=== PATIENT | female | born 1985 | race African-American/Black ===

== ENCOUNTER 2016-07-07 19:12 | Emergency (ER) | payer OTHER ==
[2016-07-07 19:18] VITALS: BP 132/84; PULSE 79; TEMP 98.4; BMI 32.5
--- NOTE | 2016-07-07 19:25 | PDOC ---
History of Present Illness - General History Source: Patient, Old Records Exam Limitations: No Limitations - History of Present Illness Initial Comments: 07/07/16 20:52 The patient is a 30 year old female who is currently 5 weeks , A1 with an ectopic, with a significant past medical history of asthma and ectopic , who presents to the emergency department with abdominal pain, headache and dizziness. She describes her pain as localized in the left lower side and suprapubic region. She denies any vaginal bleeding. She notes that she found out she was last week. The patient was last in the ED on 2016 for abdominal pain and was discharged after improvement of symptoms. The patient denies chest pain and shortness of breath. Denies fever, chills, nausea, vomit, diarrhea and constipation. Denies dysuria, frequency, urgency and hematuria. LMP: 06/01/2016 Allergies: None Past surgical history: ECTOPIC, LEFT FALLOPIAN TUBE REMOVED Social history: No alcohol, tobacco or drug use reported <Tom Rodriguez - Last Filed: 07/07/16 22:02> <Nicole Castle - Last Filed: 07/08/16 02:16> - General Chief Complaint: Pain Stated Complaint: HEADACHE/5 WKS Time Seen by Provider: 07/07/16 19:23 Past History <Tom Rodriguez - Last Filed: 07/07/16 22:02> - Past Medical History Asthma: Yes - Surgical History Abdominal Surgery: No (ECTOPIC, LEFT FILOPIAN TUBE REMOVED) - Reproductive History (#): 3 Para: 2 Spontaneous : 1 - Psycho/Social/Smoking Cessation Hx Anxiety: No Suicidal Ideation: No Smoking History: Never smoked Have you smoked in the past 12 months: No Information on smoking cessation initiated: No Hx Alcohol Use: No Drug/Substance Use Hx: No Substance Use Type: None <Nicole Castle - Last Filed: 07/08/16 02:16> - Past Medical History Allergies/Adverse Reactions: Allergies Allergy/AdvReac Type Severity Reaction Status Date / Time No Known Allergies Allergy Verified 07/07/16 19:15 Home Medications: Ambulatory Orders NK [No Known Home Medication] 07/07/16 Review of Systems - Review of Systems Able to Perform ROS?: Yes Comments:: 07/07/16 20:52 GENERAL/CONSTITUTIONAL: No fever or chills. No weakness. HEAD, EYES, EARS, NOSE AND THROAT: No change in vision. No ear pain or discharge. No sore throat. CARDIOVASCULAR: No chest pain or shortness of breath RESPIRATORY: No cough, wheezing, or hemoptysis. GASTROINTESTINAL: (+)Abdominal pain. No nausea, vomiting, diarrhea or constipation. GENITOURINARY: No dysuria, frequency, or change in urination. MUSCULOSKELETAL: No joint or muscle swelling or pain. No neck or back pain. SKIN: No rash NEUROLOGIC: (+) Headache and dizziness. No loss of consciousness, or change in strength/sensation. ENDOCRINE: No increased thirst. No abnormal weight change HEMATOLOGIC/LYMPHATIC: No anemia, easy bleeding, or history of blood clots. ALLERGIC/IMMUNOLOGIC: No hives or skin allergy. <Tom Rodriguez - Last Filed: 07/07/16 22:02> *Physical Exam - Vital Signs Last Vital Signs Temp Pulse Resp BP Pulse Ox 98.4 F 79 18 132/84 99 07/07/16 19:15 07/07/16 19:15 07/07/16 19:15 07/07/16 19:15 07/07/16 19:15 - Physical Exam Comments: 07/07/16 20:52 GENERAL: Awake, alert, and fully oriented, in no acute distress HEAD: No signs of trauma, normocephalic, atraumatic EYES: PERRLA, EOMI, sclera anicteric, conjunctiva clear ENT: Auricles normal inspection, hearing grossly normal, nares patent, oropharynx clear without exudates. Moist mucosa NECK: Normal ROM, supple, no lymphadenopathy, JVD, or masses LUNGS: No distress, speaks full sentences, clear to auscultation bilaterally HEART: Regular rate and rhythm, normal S1 and S2, no murmurs, rubs or gallops, peripheral pulses normal and equal bilaterally. ABDOMEN: Soft, nontender, normoactive bowel sounds. No guarding, no rebound. No masses EXTREMITIES: Normal inspection, Normal range of motion, no edema. No clubbing or cyanosis. NEUROLOGICAL: Cranial nerves II through XII grossly intact. Normal speech, normal gait, no focal sensorimotor deficits SKIN: Warm, Dry, normal turgor, no rashes or lesions noted. <Tom Rodriguez - Last Filed: 07/07/16 22:02> - Vital Signs Last Vital Signs Temp Pulse Resp BP Pulse Ox 98.4 F 79 18 132/84 99 07/07/16 19:15 07/07/16 19:15 07/07/16 19:15 07/07/16 19:15 07/07/16 19:15 <Nicole Castle - Last Filed: 07/08/16 02:16> ED Treatment Course - Medications Given in the ED: ED Medications Discontinued Medications Generic Name Dose Route Start Last Admin Trade Name Chanda PRN Reason Stop Dose Admin Acetaminophen 975 mg 07/07/16 19:48 07/07/16 19:59 Tylenol - PO 07/07/16 19:49 975 mg ONCE ONE Administration <Tom Rodriguez - Last Filed: 07/07/16 22:02> Medical Decision Making - Medical Decision Making 07/08/16 02:07 30-year-old female presents stating that she is and was concerned about left pelvic pain [facility] is 252 Pelvic Ultrasound only showed thickened endometrium Plan patient will need to have repeat beta hCG and pelvic ultrasound in 48 hours Impression early <Nicole Castle - Last Filed: 07/08/16 02:16> *DC/Admit/Observation/Transfer - Attestations Scribe Attestion: 07/07/16 20:53 Documentation prepared by Tom Rodriguez, acting as medical physics researcher for Nicole Castle MD <Tom Rodriguez - Last Filed: 07/07/16 22:02> <Nicole Castle - Last Filed: 07/08/16 02:16> Diagnosis at time of Disposition: Qualifiers: Weeks of gestation: less than 8 weeks Qualified Code(s): Z3A.01 - Less than 8 weeks gestation of - Discharge Dispostion Disposition: HOME Condition at time of disposition: Stable - Patient Instructions Printed Discharge Instructions: DI for -- Discomforts and Remedies Additional Instructions: please followup with your narrow fabric calenderer for further care
[2016-07-07] MEDS ORDERED: ACETAMINOPHEN 500 MG TABLET (FP) PO ONE (19:48)
[2016-07-07] MEDS ORDERED: ACETAMINOPHEN 325 MG TABLET (FP) ONE (19:54)
[2016-07-07 21:48] LABS: URINE APPEARANCE CLEAR; URINE BILIRUBIN NEGATIVE (NEGATIVE); URINE BLOOD NEGATIVE (NEGATIVE); URINE COLOR STRAW; URINE GLUCOSE (UA) NEGATIVE (NEGATIVE); URINE KETONE NEGATIVE (NEGATIVE); URINE LEUK ESTERASE NEGATIVE (NEGATIVE); URINE NITRITE NEGATIVE (NEGATIVE); URINE PROTEIN NEGATIVE (NEGATIVE); URINE UROBILINOGEN NEGATIVE E.U./dl (0.2-1.0)
== END 2016-07-07 23:59 | disposition home or self-care (01) ==
LOC: JER 19:12
DX: O26.891 Other specified pregnancy related conditions, first trimester (principal); R10.32 Left lower quadrant pain; Z3A.01 Less than 8 weeks gestation of pregnancy
CPT/HCPCS: 36415; 76817-TC; 81003; 84702; 86850; 86900; 86901; 99283-25

== ENCOUNTER 2017-03-03 19:10 | Inpatient (IN) | payer OTHER ==
[2017-03-03 20:52] LABS: BASO % 0.2 % (0-2.0); EOS % 0.4 % (0-4.5); HEMATOCRIT 39.9 % (32.4-45.2); LYMPH % 10.2 % (8-40); MCHC 32.5 g/dl (32.0-36.0); MEAN CELL VOLUME 83.1 fl (80-96); MEAN PLT VOLUME 9.4 fl (7.5-11.1); MONO % 7.9 % (3.8-10.2); NEUT % 81.3 % (42.8-82.8); PLATELET COUNT 189 K/MM3 (134-434); RDW 15.6 % (11.6-15.6); WHITE BLOOD COUNT 14.8 K/mm3 (4.0-10.0)
[2017-03-03 20:56] LABS: URINE APPEARANCE SLCLOUDY; URINE BILIRUBIN NEGATIVE (NEGATIVE); URINE BLOOD NEGATIVE (NEGATIVE); URINE COLOR DKYELLOW; URINE GLUCOSE (UA) 1+ (NEGATIVE); URINE KETONE NEGATIVE (NEGATIVE); URINE NITRITE NEGATIVE (NEGATIVE); URINE UROBILINOGEN NEGATIVE mg/dL (0.2-1.0)
[2017-03-03] MEDS: ELECTROLYTE-148 SOLN 1,000 ML IV SCH ×2 (21:00→23:10)
[2017-03-03 21:18] LABS: INR 0.96 (0.82-1.09); PROTHROMBIN TIME (PATIENT) 10.8 SEC (9.98-11.88)
[2017-03-03] MEDS ORDERED: ELECTROLYTE-148 SOLN 500 ML IV SCH (21:30)
[2017-03-03] MEDS ORDERED: DINOPROSTONE 10 MG VAGINAL SUPPOSITORY VG ONE (21:30)
[2017-03-03 21:45] LABS: URINE LEUK ESTERASE 3+ (NEGATIVE); URINE PROTEIN 1+ (NEGATIVE)
[2017-03-03] MEDS ORDERED: SODIUM CHLORIDE 100 ML IVPB ONE (21:56)
[2017-03-03] MEDS ORDERED: AMPICILLIN SODIUM 2 GM VIAL ONE (21:56)
[2017-03-03] MEDS ORDERED: AMPICILLIN - 2 GM in SODIUM CHLORIDE 100 ML IVPB ONE (22:00)
[2017-03-03] MEDS ORDERED: ELECTROLYTE-148 SOLN 500 ML IV ONE (22:28)
[2017-03-03 22:29] LABS: PLATELET ESTIMATE ADEQUATE
[2017-03-03 22:35] VITALS: BMI 36.6
[2017-03-03 22:43] LABS: EPI CELLS RARE /HPF (FEW); URINE MUCUS FEW
[2017-03-03] MEDS ORDERED: TERBUTALINE SULFATE 1 MG/1 ML VIAL SQ ONE (22:50)
[2017-03-03 22:55] LABS: ANION GAP 8 (8-16); BLOOD UREA NITROGEN 10 mg/dL (7-18); CALCIUM 8.9 mg/dL (8.5-10.1); CHLORIDE 104 mmol/L (98-107); CO2 24 mmol/L (21-32); CREATININE 0.5 mg/dL (0.55-1.02); GLUCOSE,RANDOM 98 mg/dL (74-106); POTASSIUM 4.4 mmol/L (3.5-5.1); SODIUM 136 mmol/L (136-145)
[2017-03-03] MEDS ORDERED: ELECTROLYTE-148 SOLN 1,000 ML IV SCH (23:45)
[2017-03-04] MEDS ORDERED: FENTANYL/BUPIVACAINE/NS/PF - PCEA - 50 ML DISP.SYRIN EP ONE (00:04)
--- NOTE | 2017-03-04 00:09 | HP ---
Past Medical History - Admission Chief Complaint: Elective induction History of Present Illness: 31 yo @ 39 weeks gestation, EDC 03/10/17, with uncontrolled diabetes sent for induction of labor. History Source: Patient Limitations to Obtaining History: No Limitations - Past Medical History ...: 6 ...Para: 2 ...Term: 2 ...: 0 ...Spon : 3 ...Induced : 0 ...Multiple Gestation: 0 ...LMP: 06/01/16 ... Weeks Gestation by Dates: 39.0 ...EDC by Dates: 03/10/17 ...EDC by Sono: 03/08/17 Infectious Disease: Yes: Other (Denies hx of GC/CT) - Past Surgical History Past Surgical History: Yes: None Hx Myomectomy: No Hx Transabdominal Cerclage: No - Smoking History Smoking history: Never smoked Have you smoked in the past 12 months: No - Alcohol/Substance Use Hx Alcohol Use: No History of Substance Use: reports: None - Social History History of Recent Travel: No Home Medications - Allergies Allergies/Adverse Reactions: Allergies Allergy/AdvReac Type Severity Reaction Status Date / Time No Known Allergies Allergy Verified 07/07/16 19:15 - Home Medications Home Medications: Ambulatory Orders Vit 108/Iron/Folic AC [ One Tablet] 1 tab PO DAILY 02/08/17 Family Disease History - Family Disease History Family History: Unremarkable Review of Systems - Review of Systems Constitutional: reports: No Symptoms Eyes: reports: No Symptoms Neck: reports: No Symptoms Cardiovascular: reports: No Symptoms Respiratory: reports: No Symptoms Gastrointestinal: reports: No Symptoms Genitourinary: reports: No Symptoms Breasts: reports: No Symptoms Reported Neurological: reports: No Symptoms Endocrine: reports: No Symptoms Hematology/Lymphatic: reports: No Symptoms Psychiatric: reports: No Symptoms Pain Intensity: 0 Physical Exam - Maternity Vital Signs: Vital Signs Temperature 98.0 F 03/03/17 21:57 Pulse Rate 89 03/03/17 21:57 Respiratory Rate 20 03/03/17 21:57 Blood Pressure 123/66 03/03/17 21:57 O2 Sat by Pulse Oximetry (%) Constitutional: Yes: Well Nourished Eyes: Yes: Conjunctiva Clear HENT: Yes: Atraumatic Neck: Yes: Supple Cardiovascular: Yes: Regular Rate and Rhythm Lungs: Clear to auscultation - Abdominal Exam/OB Number of Fetuses: Single Presentation: Vertex - Vaginal Exam/OB Presentation: Vertex/Position Station: -3 - Physical Exam ...Motor Strength: WNL Psychiatric: Yes: Alert, Oriented - Labs Lab Results: CBC, BMP 03/03/17 20:30 03/03/17 20:30 Problem List - Problems (1) Gestational diabetes mellitus (GDM) affecting Code(s): O24.419 - GESTATIONAL DIABETES MELLITUS IN , UNSP CONTROL Assessment/Plan IUP @ 39 weeks Uncontrolled diabetes Admit for cervidil induction Cervidil placed @ 10 PM
--- NOTE | 2017-03-04 00:18 | PN ---
Progress Note (short form) - Note Progress Note: 31 yo with uncontrolled diabetes is status post cervidil induction. She c/o moderate discomfort. Anesthesia called for epidural. Problem List - Problems (1) Gestational diabetes mellitus (GDM) affecting Code(s): O24.419 - GESTATIONAL DIABETES MELLITUS IN , UNSP CONTROL
[2017-03-04] MEDS: FENTANYL/BUPIVACAINE/NS/PF - PCEA - 50 ML DISP.SYRIN EP SCH ×2 (00:30→08:35)
[2017-03-04] MEDS ORDERED: OXYTOCIN 15 UNITS/ LR 250 ML 15 UNIT/250 ML INFUS.BAG IVPB SCH (00:45)
[2017-03-04] MEDS ORDERED: AMPICILLIN SODIUM 1 GM VIAL ONE (01:57)
[2017-03-04] MEDS: AMPICILLIN - 1 GM in SODIUM CHLORIDE 100 ML IVPB SCH ×2 (02:00→08:36)
--- NOTE | 2017-03-04 02:07 | PN ---
Progress Note (short form) - Note Progress Note: 31 yo with uncontrolled diabetes is status post epidural anesthesia, seen and evaluated. She's comfortable but FHR is not reassuring. Patient is very concerned about the well being of the baby. Decision made for S-Section. Consent signed. Anesthesia called Problem List - Problems (1) Gestational diabetes mellitus (GDM) affecting Code(s): O24.419 - GESTATIONAL DIABETES MELLITUS IN , UNSP CONTROL
[2017-03-04] MEDS ORDERED: ceFAZolin SODIUM 1 GM VIAL ONE (02:19)
[2017-03-04] MEDS ORDERED: SODIUM CHLORIDE 0.9% P/F 10 ML VIAL IJ ONE (02:19)
[2017-03-04] MEDS ORDERED: OXYTOCIN 10 UNITS/ML VIAL ONE (02:31)
[2017-03-04] MEDS ORDERED: morphine SULFATE/Preservative Free 0.5 MG/ML (1cc Syringe) ONE ×8 (02:38)
[2017-03-04] MEDS ORDERED: ONDANSETRON 4 MG/2 ML VIAL IVPUSH PRN (02:51)
[2017-03-04] MEDS ORDERED: morphine SULFATE/Preservative Free 0.5 MG/ML (1cc Syringe) EP ONE (02:51)
[2017-03-04] MEDS ORDERED: OXYTOCIN 20 UNITS in 0.9% NS 20 UNIT/1,000 ML INFUS.BAG IV ONE (02:51)
[2017-03-04] MEDS ORDERED: METHYLERGONOVINE MALEATE 0.2 MG/1 ML AMP IM PRN (03:08)
[2017-03-04] MEDS ORDERED: IBUPROFEN 600 MG TABLET (FP) PO PRN (03:08)
--- NOTE | 2017-03-04 03:12 | OP ---
Operative Note - Note: Operative Date: 03/04/17 Pre-Operative Diagnosis: Non Reassuring heart rate Operation: Primary Low Transverse Findings: Baby boy in ROT position Surgeon: Priscila Gunn Molding Line Operator: Lizbeth Kinney Anesthesia: Epidural Specimens Removed: Placenta Estimated Blood Loss (mls): 600
[2017-03-04] MEDS ORDERED: OXYTOCIN 20 UNITS in 0.9% NS 20 UNIT/1,000 ML INFUS.BAG IV SCH (03:15)
[2017-03-04] MEDS: IBUPROFEN 800 MG/8 ML IJ IVPB PRN ×2 (05:15→21:44)
[2017-03-04] MEDS ORDERED: IBUPROFEN 800 MG/8 ML IJ IVPB ONE (05:16)
[2017-03-04] MEDS ORDERED: DIPHTH,PERTUSS(ACELL),TET 0.5 ML DISP.SYRIN IM ONE (05:52)
[2017-03-04] MEDS: FERROUS SO4 325 MG TABLET (FP) PO SCH ×2 (09:14→21:50)
[2017-03-04] MEDS: PRENATAL VITAMINS W/ FOLIC ACID TABLET (FP) PO SCH (09:15)
[2017-03-04] MEDS: INSULIN DETEMIR 100 UNITS/ML MDV SQ SCH (22:50)
[2017-03-05] MEDS ORDERED: BISACODYL 10 MG SUPP.RECT RC PRN (03:08)
[2017-03-05] MEDS: LEVOTHYROXINE NA 25 MCG TABLET (FP) PO SCH (06:01)
[2017-03-05 08:57] LABS: BASO % 0.3 % (0-2.0); EOS % 0.5 % (0-4.5); HEMATOCRIT 34.2 % (32.4-45.2); LYMPH % 8.5 % (8-40); MCH 26.8 pg (25.7-33.7); MCHC 32.2 g/dl (32.0-36.0); MEAN CELL VOLUME 83.1 fl (80-96); MEAN PLT VOLUME 9.2 fl (7.5-11.1); MONO % 7.5 % (3.8-10.2); NEUT % 83.2 % (42.8-82.8); PLATELET COUNT 168 K/MM3 (134-434); RBC 4.11 M/mm3 (3.60-5.2); WHITE BLOOD COUNT 17.5 K/mm3 (4.0-10.0)
--- NOTE | 2017-03-05 09:31 | PN ---
Post Progress Note - Subjective Subjective: c/o pain at incision site , scale 7/10 voiding without difficulty Post Day: 1 Type of Delivery: Primary C/S Vital Signs: Vital Signs Temperature 98.6 F 03/05/17 08:45 Pulse Rate 90 03/05/17 08:45 Respiratory Rate 20 03/05/17 08:45 Blood Pressure 100/69 03/05/17 08:45 O2 Sat by Pulse Oximetry (%) 100 03/04/17 04:00 Breast Exam: Yes: Soft, Other (attempting to BF ). No: Engorged Uterus: Yes: Fundus Firm, Fundus below umbilicus, Non-tender Incision: Yes: Dressing dry and intact. No: Redness, Oozing Abdomen/GI: Yes: Abdomen soft (bs active ), Tender, Passing flatus, Tolerating PO (diet ). No: Abdominal Distention Lochia: Yes: Rubra Lochia, amount: Moderate Extremities: Yes: Calves non-tender Perineum: Yes: Intact Activity: Ambulating - Labs Labs: CBC WBC 17.5 K/mm3 (4.0-10.0) H 03/05/17 08:00 RBC 4.11 M/mm3 (3.60-5.2) 03/05/17 08:00 Hgb 11.0 GM/dL (10.7-15.3) D 03/05/17 08:00 Hct 34.2 % (32.4-45.2) 03/05/17 08:00 MCV 83.1 fl (80-96) 03/05/17 08:00 MCH 26.8 pg (25.7-33.7) 03/05/17 08:00 MCHC 32.2 g/dl (32.0-36.0) 03/05/17 08:00 RDW 16.0 % (11.6-15.6) H 03/05/17 08:00 Plt Count 168 K/MM3 (134-434) 03/05/17 08:00 MPV 9.2 fl (7.5-11.1) 03/05/17 08:00 Neutrophils % 83.2 % (42.8-82.8) H 03/05/17 08:00 Lymphocytes % 8.5 % (8-40) 03/05/17 08:00 Monocytes % 7.5 % (3.8-10.2) 03/05/17 08:00 Eosinophils % 0.5 % (0-4.5) 03/05/17 08:00 Basophils % 0.3 % (0-2.0) 03/05/17 08:00 Platelet Estimate Adequate 03/03/17 20:30 Platelet Comment No clotting detected 03/03/17 20:30 Other Findings, Remarks: Laboratory Tests 03/04/17 03/04/17 03/04/17 01:19 06:47 22:11 POC Glucometer 117 187 112 03/05/17 08:36 POC Glucometer 106 Problem List - Problems (1) Status post section routine follow-up Code(s): Z39.2 - ENCOUNTER FOR ROUTINE FOLLOW-UP; Z98.891 - HISTORY OF UTERINE SCAR FROM PREVIOUS SURGERY Assessment/Plan stable post c/s day #1 encourage po fluids, ambulation ct bgm monitoring
[2017-03-05] MEDS ORDERED: PATIENT'S OWN MEDICATION (NON-FORMULARY) (Prenatal Vit 108/Iron/Folic Ac [Prenatal One Tab PO SCH (10:00)
[2017-03-05] MEDS ORDERED: LEVOTHYROXINE NA 25 MCG TABLET (FP) PO SCH (10:00)
[2017-03-05] MEDS ORDERED: DIPHTH,PERTUSS(ACELL),TET 0.5 ML DISP.SYRIN IM ONE ×2 (10:00)
[2017-03-05] MEDS: FERROUS SO4 325 MG TABLET (FP) PO SCH ×2 (10:14→22:14)
[2017-03-05] MEDS: PRENATAL VITAMINS W/ FOLIC ACID TABLET (FP) PO SCH (10:14)
[2017-03-05] MEDS: ACETAMINOPHEN 325 MG TABLET (FP) PO PRN ×2 (12:31→20:08)
[2017-03-05] MEDS: SIMETHICONE 80 MG TAB.CHEW (FP) PO PRN ×2 (12:31→20:07)
[2017-03-05] MEDS: oxyCODONE HCL 5 MG TABLET PO PRN ×2 (12:32→20:07)
--- NOTE | 2017-03-05 20:25 | PN ---
Progress Note, Physician Chief Complaint: Pt. ambulating and voiding, pain controlled. No anesthesia complaints. - Current Medication List Current Medications: Active Medications Acetaminophen (Tylenol -) 650 mg PO Q4H PRN PRN Reason: FEVER OR PAIN Last Admin: 03/05/17 20:08 Dose: 650 mg Bisacodyl (Dulcolax Suppository -) 10 mg RC PRN PRN PRN Reason: CONSTIPATION Diphenhydramine HCl (Benadryl Injection -) 25 mg IVPUSH Q4H PRN PRN Reason: Pruritis Last Admin: 03/04/17 21:43 Dose: 25 mg Ferrous Sulfate (Feosol -) 325 mg PO BID [facility] Last Admin: 03/05/17 10:14 Dose: 325 mg Ibuprofen (Motrin -) 600 mg PO Q4H PRN PRN Reason: PAIN Ibuprofen (Caldolor Injection -) 600 mg IVPB Q8H PRN PRN Reason: FEVER Last Admin: 03/04/17 21:44 Dose: 600 mg Insulin Detemir (Levemir Vial) 3 units SQ HS [facility] Last Admin: 03/04/17 22:50 Dose: Not Given Levothyroxine Sodium (Synthroid -) 25 mcg PO DAILY@0700 [facility] Last Admin: 03/05/17 06:01 Dose: 25 mcg Methylergonovine Maleate (Methergine Injection -) 0.2 mg IM Q4H PRN PRN Reason: Excessive Bleeding (L&D) Ondansetron HCl (Zofran Injection) 4 mg IVPUSH Q4H PRN PRN Reason: NAUSEA Last Admin: 03/04/17 13:20 Dose: 4 mg Oxycodone HCl (Roxicodone -) 5 mg PO Q4H PRN PRN Reason: PAIN LEVEL 1-5 Last Admin: 03/05/17 20:07 Dose: 5 mg Multivit/Folic Acid/Iron ( Vitamins (Sjr) -) 1 tab PO DAILY [facility] Last Admin: 03/05/17 10:14 Dose: 1 tab Simethicone (Mylicon -) 80 mg PO Q4H PRN PRN Reason: GAS Last Admin: 03/05/17 20:07 Dose: 80 mg - Objective Vital Signs: Vital Signs Temperature 98.6 F 03/05/17 08:45 Pulse Rate 90 03/05/17 08:45 Respiratory Rate 20 03/05/17 08:45 Blood Pressure 100/69 03/05/17 08:45 O2 Sat by Pulse Oximetry (%) 100 03/04/17 04:00 Constitutional: Yes: Well Nourished, No Distress, Calm Musculoskeletal: Yes: WNL Neurological: Yes: WNL, Alert, Oriented ...Motor Strength: WNL Labs: CBC, BMP 03/05/17 08:00 03/03/17 20:30 INR, PTT INR 0.96 (0.82-1.09) 03/03/17 20:30 Assessment/Plan POD#1 s/p under spinal with duramorph. Doing well. D/C from anesthesia care.
[2017-03-05] MEDS: INSULIN DETEMIR 100 UNITS/ML MDV SQ SCH (22:15)
[2017-03-06] MEDS: IBUPROFEN 600 MG TABLET (FP) PO PRN ×3 (06:07→21:24)
[2017-03-06] MEDS: LEVOTHYROXINE NA 25 MCG TABLET (FP) PO SCH (06:08)
[2017-03-06] MEDS: SIMETHICONE 80 MG TAB.CHEW (FP) PO PRN ×3 (06:08→21:24)
[2017-03-06] MEDS: ACETAMINOPHEN 325 MG TABLET (FP) PO PRN ×2 (06:08→21:23)
--- NOTE | 2017-03-06 07:56 | PN ---
Post Progress Note - Subjective Subjective: c/o pain at op site , scale 7/10 voiding without difficulty Post Day: 2 Type of Delivery: Primary C/S Vital Signs: Vital Signs Temperature 99.1 F 03/05/17 22:00 Pulse Rate 101 H 03/05/17 22:00 Respiratory Rate 20 03/05/17 22:00 Blood Pressure 109/67 03/05/17 22:00 O2 Sat by Pulse Oximetry (%) 100 03/04/17 04:00 Breast Exam: Yes: Soft, Other (no breast milk, botle feeding ). No: Engorged Uterus: Yes: Fundus Firm, Fundus below umbilicus, Non-tender Incision: Yes: Dressing dry and intact (to be removed ). No: Redness, Oozing Abdomen/GI: Yes: Abdomen soft, Passing flatus, Tolerating PO (diet ). No: Abdominal Distention, Tender Lochia: Yes: Rubra Lochia, amount: Moderate Extremities: Yes: Calves non-tender Perineum: Yes: Intact Activity: Ambulating - Labs Labs: CBC WBC 17.5 K/mm3 (4.0-10.0) H 03/05/17 08:00 RBC 4.11 M/mm3 (3.60-5.2) 03/05/17 08:00 Hgb 11.0 GM/dL (10.7-15.3) D 03/05/17 08:00 Hct 34.2 % (32.4-45.2) 03/05/17 08:00 MCV 83.1 fl (80-96) 03/05/17 08:00 MCH 26.8 pg (25.7-33.7) 03/05/17 08:00 MCHC 32.2 g/dl (32.0-36.0) 03/05/17 08:00 RDW 16.0 % (11.6-15.6) H 03/05/17 08:00 Plt Count 168 K/MM3 (134-434) 03/05/17 08:00 MPV 9.2 fl (7.5-11.1) 03/05/17 08:00 Neutrophils % 83.2 % (42.8-82.8) H 03/05/17 08:00 Lymphocytes % 8.5 % (8-40) 03/05/17 08:00 Monocytes % 7.5 % (3.8-10.2) 03/05/17 08:00 Eosinophils % 0.5 % (0-4.5) 03/05/17 08:00 Basophils % 0.3 % (0-2.0) 03/05/17 08:00 Platelet Estimate Adequate 03/03/17 20:30 Platelet Comment No clotting detected 03/03/17 20:30 Laboratory Tests 03/04/17 03/05/17 03/05/17 22:11 08:36 14:00 POC Glucometer 112 106 138 03/05/17 03/06/17 20:14 06:36 POC Glucometer 147 129 Problem List - Problems (1) Status post section routine follow-up Code(s): Z39.2 - ENCOUNTER FOR ROUTINE FOLLOW-UP; Z98.891 - HISTORY OF UTERINE SCAR FROM PREVIOUS SURGERY (2) GDM (gestational diabetes mellitus) Code(s): O24.419 - GESTATIONAL DIABETES MELLITUS IN , UNSP CONTROL Qualifiers: Trimester: third trimester Assessment/Plan pod #2 post c/section GDM, today fasting bgm 129 is high, pt alerted about diet watch encourage ambulation , deep breathing
[2017-03-06] MEDS: PRENATAL VITAMINS W/ FOLIC ACID TABLET (FP) PO SCH (09:20)
[2017-03-06] MEDS: FERROUS SO4 325 MG TABLET (FP) PO SCH ×2 (09:20→21:23)
[2017-03-06] MEDS: oxyCODONE HCL 5 MG TABLET PO PRN (09:57)
[2017-03-06] MEDS: INSULIN DETEMIR 100 UNITS/ML MDV SQ SCH (22:18)
[2017-03-07] MEDS: LEVOTHYROXINE NA 25 MCG TABLET (FP) PO SCH (06:18)
[2017-03-07] MEDS: IBUPROFEN 600 MG TABLET (FP) PO PRN (08:14)
[2017-03-07] MEDS: ACETAMINOPHEN 325 MG TABLET (FP) PO PRN (08:15)
[2017-03-07] MEDS: SIMETHICONE 80 MG TAB.CHEW (FP) PO PRN (08:16)
[2017-03-07 09:04] LABS: HEMATOCRIT 35.7 % (32.4-45.2); HEMOGLOBIN 11.1 GM/dL (10.7-15.3); MCH 26.3 pg (25.7-33.7); MCHC 31.2 g/dl (32.0-36.0); MEAN CELL VOLUME 84.4 fl (80-96); MEAN PLT VOLUME 8.8 fl (7.5-11.1); PLATELET COUNT 205 K/MM3 (134-434); RBC 4.22 M/mm3 (3.60-5.2); WHITE BLOOD COUNT 12.5 K/mm3 (4.0-10.0)
[2017-03-07] MEDS: FERROUS SO4 325 MG TABLET (FP) PO SCH (10:13)
[2017-03-07] MEDS: PRENATAL VITAMINS W/ FOLIC ACID TABLET (FP) PO SCH (10:13)
[2017-03-07 10:21] LABS: ANISOCYTOSIS 2+; PLATELET ESTIMATE NORMAL
--- NOTE | 2017-03-07 11:41 | PN ---
Post Progress Note - Subjective Subjective: c/o pain less, now voiding withiout difficulty Post Day: 3 Type of Delivery: Primary C/S Vital Signs: Vital Signs Temperature 98.3 F 03/06/17 22:00 Pulse Rate 100 H 03/06/17 22:00 Respiratory Rate 18 03/06/17 22:00 Blood Pressure 121/72 03/06/17 22:00 O2 Sat by Pulse Oximetry (%) 100 03/04/17 04:00 Breast Exam: Yes: Soft. No: Engorged Uterus: Yes: Fundus Firm, Fundus below umbilicus, Non-tender Incision: Yes: Sutures intact (steri strips applied , intradermal suture ). No : Redness, Oozing Abdomen/GI: Yes: Abdomen soft, Passing flatus, Tolerating PO (diet ). No: Abdominal Distention, Tender Lochia: Yes: Rubra Lochia, amount: Moderate Extremities: Yes: Calves non-tender Perineum: Yes: Intact Activity: Ambulating - Labs Labs: CBC WBC 12.5 K/mm3 (4.0-10.0) H 03/07/17 06:00 RBC 4.22 M/mm3 (3.60-5.2) 03/07/17 06:00 Hgb 11.1 GM/dL (10.7-15.3) 03/07/17 06:00 Hct 35.7 % (32.4-45.2) 03/07/17 06:00 MCV 84.4 fl (80-96) 03/07/17 06:00 MCH 26.3 pg (25.7-33.7) 03/07/17 06:00 MCHC 31.2 g/dl (32.0-36.0) L 03/07/17 06:00 RDW 16.0 % (11.6-15.6) H 03/07/17 06:00 Plt Count 205 K/MM3 (134-434) D 03/07/17 06:00 MPV 8.8 fl (7.5-11.1) 03/07/17 06:00 Neutrophils % No Result Required. 03/07/17 06:00 Neutrophils % (Manual) 75.3 % (42.8-82.8) 03/07/17 06:00 Band Neutrophils % 0.0 % 03/07/17 06:00 Lymphocytes % No Result Required. 03/07/17 06:00 Lymphocytes % (Manual) 8.2 % (8-40) 03/07/17 06:00 Monocytes % 7.5 % (3.8-10.2) 03/05/17 08:00 Monocytes % (Manual) 9 % (3.8-10.2) 03/07/17 06:00 Eosinophils % 0.5 % (0-4.5) 03/05/17 08:00 Eosinophils % (Manual) 1.0 % (0-4.5) 03/07/17 06:00 Basophils % 0.3 % (0-2.0) 03/05/17 08:00 Basophils % (Manual) 1.0 % (0-2.0) 03/07/17 06:00 Myelocytes % (Man) 0 % (0-2) 03/07/17 06:00 Metamyelocytes 0 % (0-2) 03/07/17 06:00 Hypochromia 2+ 03/07/17 06:00 Platelet Estimate Normal 03/07/17 06:00 Platelet Comment No clotting detected 03/03/17 20:30 Polychromasia 1+ 03/07/17 06:00 Anisocytosis 2+ 03/07/17 06:00 Microcytosis 1+ 03/07/17 06:00 Laboratory Tests 03/06/17 03/06/17 03/06/17 11:55 15:34 22:09 POC Glucometer 94 150 136 03/07/17 03/07/17 06:23 11:12 POC Glucometer 119 132 Problem List - Problems (1) Status post section routine follow-up Code(s): Z39.2 - ENCOUNTER FOR ROUTINE FOLLOW-UP; Z98.891 - HISTORY OF UTERINE SCAR FROM PREVIOUS SURGERY (2) GDM (gestational diabetes mellitus) Code(s): O24.419 - GESTATIONAL DIABETES MELLITUS IN , UNSP CONTROL Qualifiers: Trimester: third trimester Assessment/Plan pod #3 ,after c/section stable GDM , BGM elevated when diet is taken extra pt counselled for diet will follow in the clinic . discharge today
[2017-03-07 12:53] VITALS: BP 110/81; PULSE 81; TEMP 98
--- NOTE | 2017-03-09 14:00 | PATH ---
Surgical Pathology Report Patient Name: MAGALIS MARSHALL Med. Rec. 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 Specimen(s) Received PLACENTA Clinical History , 39.3 weeks, non-controlled gestational diabetes mellitus insulin Nonreassuring heart rate tracing Final Diagnosis PLACENTA, DELIVERY: FOCALLY DISRUPTED THIRD TRIMESTER PLACENTA WITH THREE VESSEL UMBILICAL CORD AND UNREMARKABLE PLACENTAL MEMBRANES. Electronically Signed Nestor Plummer M.D. Gross Description The specimen is received fresh labeled placenta and is a 456 gram, 13.5 x 13.5 x 3.8 cm. placenta with attached membranes and umbilical cord. The attached membranes are kovacs, translucent with focal opacities and display focal circumarginate insertion. The umbilical cord measures 23 cm. in length and averages 1.2 cm. in diameter. The cord inserts eccentrically, 2.5 cm. to the nearest margin. No true knots or strictures are identified. Cut surface of the umbilical cord reveals 3 vessels. The surface is muro-blue with minimal fibrin deposition and appropriate caliber vessels. The maternal surface is red-brown with focal defects. Sectioning reveals red-brown, spongy parenchyma. No lesions are identified. [employer] sections are submitted in three cassettes as follows: 1- membrane rolls and umbilical cord; 2-3- full thickness sections of placenta. 03/05/2017 [facility]03/05/2017
== END 2017-03-07 12:45 | disposition home or self-care (01) | DRG 766 ==
LOC: JLDR 19:10 → J3W 03-04 05:40
PROVIDERS: ADMIT Obstetrics & Gynecology; ATTEND Obstetrics & Gynecology
PROC: 10D00Z1 Extraction of Products of Conception, Low, Open Approach (ICD-10-PCS; principal; 2017-03-04)
PROC: 3E0P7VZ Introduction of Hormone into Female Reproductive, Via Natural or Artificial Opening (ICD-10-PCS; 2017-03-04)
DX: O76 Abnormality in fetal heart rate and rhythm complicating labor and delivery (principal); O24.429 Gestational diabetes mellitus in childbirth, unspecified control; Z3A.39 39 weeks gestation of pregnancy; Z37.0 Single live birth
CPT/HCPCS: 36415; 80048; 81003; 81015; 85025; 85610; 85730; 86593; 86850; 86900; 86901; 88307-TC; 90715